=== PATIENT | female | born 1960 | race Caucasian/White ===

== ENCOUNTER 2017-09-29 14:05 | Emergency (ER) | payer SELFPAY ==
[2017-09-29] MEDS ORDERED: ONDANSETRON HCL INJ/PF 4 MG/2 ML SDV IV ONE (14:51)
[2017-09-29] MEDS ORDERED: NORMAL SALINE 1000 ML 1,000 ML IV ONE (14:51)
[2017-09-29] MEDS ORDERED: MORPHINE SULFATE 10 MG/ML INJ IV ONE (14:54)
[2017-09-29] MEDS ORDERED: CLONIDINE HCL 0.2 MG TABLET PO ONE (14:56)
--- NOTE | 2017-09-29 14:57 | ER Document Report ---
ED Medical Screen (RME) - General Chief Complaint: Back Pain Stated Complaint: LEFT SIDE PAIN Time Seen by Provider: 09/29/17 14:50 Notes: Patient reports sudden onset of severe left flank pain radiating to the left lower abdomen. She has some frequency and urgency. She states she is also nauseated. She states she has not been taking her blood pressure medication. She states that financial is part of the reason but not the whole reason. TRAVEL OUTSIDE OF THE [place] IN LAST 30 DAYS: No - Related Data Allergies/Adverse Reactions: codeine Allergy (Verified 09/29/17 14:39) Home Medications: Current Home Medications Aspirin [Aspirin EC] 81 mg PO DAILY 09/29/17 [History] Past Medical History - Social History Chew tobacco use (# tins/day): No Frequency of alcohol use: Rare Drug Abuse: None - Past Medical History Cardiac Medical History: Reports: Hx Hypertension Pulmonary Medical History: Reports: Hx Asthma, Hx COPD Renal/ Medical History: Denies: Hx Peritoneal Dialysis Physical Exam - Vital signs Vitals: Temp Pulse Resp BP Pulse Ox 98.0 F 79 20 243/111 H 98 09/29/17 14:11 09/29/17 14:11 09/29/17 14:11 09/29/17 14:11 09/29/17 14:11 Course - Vital Signs Vital signs: Temp Pulse Resp BP Pulse Ox 98.0 F 79 20 243/111 H 98 09/29/17 14:11 09/29/17 14:11 09/29/17 14:11 09/29/17 14:11 09/29/17 14:11
[2017-09-29 15:59] LABS: ABSOLUTE BASOPHILS # (AUTO) 0.1 10^3/uL (0.0-0.2); ABSOLUTE EOSINOPHILS # (AUTO) 0.2 10^3/uL (0.0-0.6); ABSOLUTE LYMPHOCYTES (AUTO) 1.3 10^3/uL (0.5-4.7); ABSOLUTE MONOCYTES (AUTO) 0.8 10^3/uL (0.1-1.4); BASOPHILS % (AUTO) 0.4 % (0-2); EOSINOPHILS % (AUTO) 1.3 % (0-6); HEMATOCRIT 44.9 % (36.0-47.0); HEMOGLOBIN 15.2 g/dL (12.0-15.5); HGB HCT DIFFERENCE 0.7; LYMPHOCYTES % (AUTO) 9.8 % (13-45); MEAN CORPUSCULAR HEMOGLOBIN 28.6 pg (27.0-33.4); MEAN CORPUSCULAR HGB CONC 33.8 g/dL (32.0-36.0); MEAN CORPUSCULAR VOLUME 85 fl (80-97); MONOCYTES % (AUTO) 6.1 % (3-13); RED BLOOD COUNT 5.31 10^6/uL (3.72-5.28); RED CELL DISTRIBUTION WIDTH 13.4 % (11.5-14.0); SEGMENTED NEUTROPHILS % (AUTO) 82.4 % (42-78); WHITE BLOOD COUNT 13.4 10^3/uL (4.0-10.5)
[2017-09-29 16:11] LABS: AMORPHOUS SEDIMENT,URINE TRACE /HPF; APPEARANCE,URINE TURBID; BILIRUBIN,URINE NEGATIVE (NEGATIVE); GLUCOSE, URINE NEGATIVE (NEGATIVE); KETONES,URINE NEGATIVE (NEGATIVE); LEUKOCYTE ESTERASE,URINE MODERATE (NEGATIVE); NITRITE,URINE NEGATIVE (NEGATIVE); PROTEIN,URINE >=500 mg/dL (NEGATIVE); URINE SPECIFIC GRAVITY 1.014; UROBILINOGEN,URINE NEGATIVE mg/dL (<2.0)
[2017-09-29 16:14] LABS: ALANINE AMINOTRANSFERASE 37 U/L (9-52); ALBUMIN 4.6 g/dL (3.5-5.0); ALKALINE PHOSPHATASE 103 U/L (38-126); ANION GAP 14 (5-19); ASPARTATE AMINO TRANSFERASE 21 U/L (14-36); BILIRUBIN,DIRECT 0.2 mg/dL (0.0-0.4); BILIRUBIN,TOTAL 0.7 mg/dL (0.2-1.3); BLOOD UREA NITROGEN 20 mg/dL (7-20); CALCIUM 10.1 mg/dL (8.4-10.2); CARBON DIOXIDE 28 mmol/L (22-30); CHLORIDE 102 mmol/L (98-107); CREATININE RESULT 0.99 mg/dL (0.52-1.25); GLUCOSE 122 mg/dL (75-110); POTASSIUM 4.3 mmol/L (3.6-5.0); SODIUM 143.9 mmol/L (137-145); TOTAL PROTEIN 7.7 g/dL (6.3-8.2)
[2017-09-29] MEDS ORDERED: CEFTRIAXONE 1 GM/D5W RTU 1 GM/50 ML RTUPB IV ONE (16:50)
--- NOTE | 2017-09-29 16:55 | RADIOLOGY REPORT (SQ) ---
EXAM DESCRIPTION: CT ABD/PELVIS NO ORAL OR IV COMPLETED DATE/TIME: 09/29/2017 3:41 pm REASON FOR STUDY: left flank pain COMPARISON: None. TECHNIQUE: CT scan of the abdomen and pelvis performed without intravenous or oral contrast. Images reviewed with lung, soft tissue, and bone windows. Reconstructed coronal and sagittal MPR images revi ewed. All images stored on PACS. All CT scanners at this facility use dose modulation, iterative reconstruction, and/or weight based d osing when appropriate to reduce radiation dose to as low as reasonably achievable (ALARA). [facility]: Dose Right [facility]: CareDose [facility]: Dose Right [facility]: Teradose 4D [facility]: Smart [employer] RADIATION DOSE: CT Rad equipment meets quality standard of care and radiation dose reduction techniq ues were employed. CTDIvol: 14.4 mGy. DLP: 759 mGy-cm.mGy. LIMITATIONS: None. FINDINGS: LOWER CHEST: No significant findings. No nodules or infiltrates. NON-CONTRASTED LIVER, SPLEEN, ADRENALS: Evaluation limited by lack of IV contrast. No identified sign ificant masses. PANCREAS: No masses. No peripancreatic inflammatory changes. GALLBLADDER: No identified stones by CT criteria. No inflammatory changes to suggest cholecystitis. RIGHT KIDNEY AND URETER: No suspicious masses. Assessment limited by lack of IV contrast. No signif icant calcifications. No hydronephrosis or hydroureter. LEFT KIDNEY AND URETER: No suspicious masses. Assessment limited by lack of IV contrast. 5 mm calcu nikolay at UPJ. Hydronephrosis is present. AORTA AND RETROPERITONEUM: No aneurysm. No retroperitoneal masses or adenopathy. BOWEL AND PERITONEAL CAVITY: Numerous diverticula throughout the colon. No acute inflammatory change s. APPENDIX: Normal. PELVIS, BLADDER, AND ABDOMINAL WALL:No abnormal masses. No free fluid. Bladder normal. BONES: No significant findings. OTHER: No other significant finding. IMPRESSION: 1. Left hydronephrosis secondary to a 5 mm calculus at the left UPJ. 2. Extensive diverticulosis coli with no acute inflammation. COMMENT: Quality ID # [id number]: Final reports with documentation of one or more dose reduction techniques (e.g., Automated exposure control, adjustment of the mA and/or kV according to patient size, use of iterative reconstruction technique) TECHNICAL DOCUMENTATION: JOB ID: [id number]- All Rights Reserved
[2017-09-29] MEDS ORDERED: HYDROMORPHONE HCL INJ/PF 2 MG/ML AMPULE IV ONE (17:23)
--- NOTE | 2017-09-29 17:29 | ER Document Report ---
ED GI/ - General Chief Complaint: Back Pain Stated Complaint: LEFT SIDE PAIN Time Seen by Provider: 09/29/17 14:50 TRAVEL OUTSIDE OF THE [place] IN LAST 30 DAYS: No - HPI Notes: 09/29/17 17:25 56-year-old female with history of hypertension as well as COPD, continued tobacco abuse presents with onset of left flank pain starting about noon today. It is severe radiating to the left lower abdomen. It is somewhat improved after receiving morphine after being evaluated in [facility] by Dr. Hudson. She has had nausea without vomiting. Denies diarrhea or stool change. She has had dysuria and hematuria as well with increased urine output. Denies prior urologic abnormality or abdominal surgery. Denies fever, rigors. - Related Data Allergies/Adverse Reactions: codeine Allergy (Verified 09/29/17 14:39) Home Medications: Current Home Medications Aspirin [Aspirin EC] 81 mg PO DAILY 09/29/17 [History] Past Medical History - Social History Smoking Status: Current Every Day Smoker Chew tobacco use (# tins/day): No Frequency of alcohol use: Rare Drug Abuse: None Family History: Reviewed & Not Pertinent Patient has suicidal ideation: No Patient has homicidal ideation: No - Past Medical History Cardiac Medical History: Reports: Hx Hypertension Pulmonary Medical History: Reports: Hx Asthma, Hx COPD Renal/ Medical History: Denies: Hx Peritoneal Dialysis Review of Systems - Review of Systems -: Yes All other systems reviewed and negative Physical Exam - Vital signs Vitals: Temp Pulse Resp BP Pulse Ox 98.0 F 79 20 243/111 H 98 09/29/17 14:11 09/29/17 14:11 09/29/17 14:11 09/29/17 14:11 09/29/17 14:11 Interpretation: Hypertensive - Notes Notes: GENERAL: VS as per nursing doc. Well-appearing, well-nourished and in no acute distress. HEAD: Atraumatic, normocephalic. EYES: Sclera anicteric, no conjunctival injection or discharge. ENT: Nares patent, oropharynx clear without exudates, moist mucous membranes. NECK: Normal range of motion, supple without lymphadenopathy. LUNGS: Breath sounds coarse but clear to auscultation bilaterally and equal. No wheezes rales or rhonchi. HEART: Regular rate and rhythm without murmurs. ABDOMEN: Soft, mild generalized left abdominal tenderness, normoactive bowel sounds. No guarding, no rebound. No masses appreciated. No Anita sign. BACK: Moderate left CVA tenderness. EXTREMITIES: Normal range of motion. NEUROLOGICAL: Cranial nerves grossly intact. Normal speech. Normal sensory and motor exams. No gross cerebellar abnormalities. PSYCH: Normal mood, normal affect. SKIN: Warm, dry, normal turgor, no shingles rash. Course - Re-evaluation Re-evalutation: 09/29/17 18:03 Still awaiting blood pressure recheck. Patient is requesting more pain medication appears fairly uncomfortable. Nausea improved but not completely gone. I have contacted [facility] transfer center and awaiting a phone call back regarding transfer consideration. 09/29/17 18:14 I discussed with the urologist at [facility], Dr. Lambert, . He did not feel the patient needed emergent follow-up and just needed to ensure she had a culture placed, put on antibiotics but he is agreeable for follow-up and did not feel she needed stenting based on her WBC count, symptoms, normal heart rate, and lack of fever. I have asked for a copy of the CT to be given to the patient. Urine cultures already been ordered and Rocephin is already been given. 09/29/17 18:15 Follow-up blood pressure is 166/100 09/29/17 18:37 Discussed with the patient follow-up needs and she is comfortable with outpatient follow-up, would prefer this. They are going to call a local urologist in town here to see if they can get him rather than travel to [place] but understand they do have guaranteed follow-up there. She understands all warning signs as well as family who are with her on what to return for an mandatory follow-up. She does agree to start lisinopril to see if we can get some improvement with her blood pressure. As she has no insurance we will start lisinopril. We will place her as well on Bactrim to see if we can get her urine cleared up. She can take hydrocodone so she will prescribe this for pain as well as anti-emetics. - Vital Signs Vital signs: Temp Pulse Resp BP Pulse Ox 98.0 F 79 20 166/100 H 98 09/29/17 18:05 09/29/17 18:05 09/29/17 18:05 09/29/17 18:07 09/29/17 18:05 - Laboratory Result Diagrams: 09/29/17 15:20 09/29/17 15:20 Laboratory results interpreted by me: 09/29/17 09/29/17 09/29/17 14:30 15:20 15:20 WBC 13.4 H RBC 5.31 H Seg Neutrophils % 82.4 H Lymphocytes % 9.8 L Absolute Neutrophils 11.0 H Est GFR (Non-Af Amer) 58 L Glucose 122 H Urine Protein >=500 H Urine Blood LARGE H Ur Leukocyte Esterase MODERATE H - Diagnostic Test Radiology reviewed: Reports reviewed - 5 mm left UPJ stone with hydronephrosis Discharge - Discharge Clinical Impression: Ureteral calculus, left, UTI (urinary tract infection), Hypertension Condition: Good Disposition: HOME, SELF-CARE Instructions: Urinary Tract Infection ([facility]), Trimethoprim-Sulfa ([facility]) Additional Instructions: Kidney Stone You are passing or have passed a kidney stone. These stones are usually due to increased calcium or uric acid concentrations in your urine. Stones within the kidney itself are not painful. The pain occurs as the stone leaves the kidney to pass down the long tube, called the ureter, leading to the bladder. If the stone is small, it will usually pass by itself. Most patients can pass the stone at home. You will usually receive medications for pain, nausea or vomiting, and sometimes a medication to assist in passing the kidney stone. However, if the pain is very severe or if vomiting prevents you from taking oral pain medications, you may need to return for further treatment. Drink three or four quarts of fluids per day. You will be given pain medication (if needed) and urine strainers. Strain all your urine to see if the stone passes. If your doctor has asked you to bring the stone in for analysis, return with the stone once it has passed. Return if pain or vomiting become severe, if you develop a high fever, if you are unable to pass your urine, or if other unusual symptoms occur. As we discussed, make sure you take the CT scan on disc I gave you to your appointment. Feel free to contact a local physician but, if you have any difficulty getting in, Dr. Lambert ([facility], Dr. Lambert, ) stated he will follow you up in [place] at the number provided. Please make sure that your follow-up is taken care of tomorrow. He will need a primary care physician as well either through the [facility] or the [facility] to follow-up your blood pressure as well. Keep hydrated with non- caffeinated fluids. Make sure you return if you are developing fever, uncontrolled pain, repetitive vomiting or inability to keep the antibiotic pills down. Make sure you start your medications in the morning. Prescriptions: Hydrocodone/Acetaminophen [[place] 10-325 mg Tablet] 1 tab PO Q6HP PRN #20 tablet PRN Reason: For Pain Lisinopril 20 mg PO DAILY #20 tablet Ondansetron [Zofran Odt 4 mg Tablet] 1 tab PO Q4H PRN #15 tab.rapdis PRN Reason: For Nausea/Vomiting Sulfamethoxazole/Trimethoprim [Bactrim Ds Tablet] 1 each PO BID #20 tablet
[2017-09-29] MEDS ORDERED: LISINOPRIL 10 MG TABLET PO ONE (18:46)
[2017-09-29 19:05] VITALS: BP 172/88
== END 2017-09-29 19:11 | disposition home or self-care (01) ==
LOC: ER 14:05
DX: N39.0 Urinary tract infection, site not specified (principal); N20.1 Calculus of ureter; I10 Essential (primary) hypertension; M54.9 Dorsalgia, unspecified; J44.9 Chronic obstructive pulmonary disease, unspecified; R10.32 Left lower quadrant pain; R30.0 Dysuria; R31.9 Hematuria, unspecified; F17.200 Nicotine dependence, unspecified, uncomplicated
CPT/HCPCS: 99284; 96375; 96365; 36415; 87040; 87086; 85025; 87088; 80053; 81001; 87186; 74176; J2270; J1170; J2405; J7030; J0696

== ENCOUNTER 2017-10-14 14:55 | Emergency (ER) | payer SELFPAY ==
[2017-10-14] MEDS ORDERED: ONDANSETRON ODT 4 MG TAB (6 TAB/ER DISP) PO PRN (15:51)
[2017-10-14] MEDS ORDERED: KETOROLAC TROMETHAMINE 60 MG/2 ML SDV IM ONE (15:51)
--- NOTE | 2017-10-14 15:52 | ER Document Report ---
ED General - General Chief Complaint: Flank Pain Stated Complaint: LEFT SIDE PAIN Time Seen by Provider: 10/14/17 15:45 Notes: 36-year-old female presents with left flank pain worse since this morning similar to when she had a kidney stone on the left side. She states "my stone moved." She has some nausea subjective fever and chills and dysuria. No hematuria. She was diagnosed here couple of weeks ago and was sent to urology who she saw. They did not do any interventions, and asked her to go to the ER [place] today. She cannot get there is secondary to transportation TRAVEL OUTSIDE OF THE [place] IN LAST 30 DAYS: No - Related Data Allergies/Adverse Reactions: codeine Allergy (Verified 09/29/17 14:39) Past Medical History - Social History Smoking Status: Current Every Day Smoker Family History: Reviewed & Not Pertinent - Past Medical History Cardiac Medical History: Reports: Hx Hypertension Pulmonary Medical History: Reports: Hx Asthma, Hx COPD Renal/ Medical History: Denies: Hx Peritoneal Dialysis Physical Exam - Vital signs Vitals: Temp Pulse Resp BP Pulse Ox 99.3 F 88 16 184/80 H 97 10/14/17 15:18 10/14/17 15:18 10/14/17 15:18 10/14/17 15:18 10/14/17 15:18 Course - Re-evaluation Re-evalutation: 10/14/17 16:47 Patient presents with recurrent left flank pain in the setting of known 5 mm kidney stone on the left side. She has some CVA tenderness and some signs and symptoms of infection. CVA tenderness is concerning for infection. Urinalysis and culture were sent. Initially I ordered oral meds and a CT scan. On my interpretation of the scan she still has the same stone at the same site of obstruction with the same amount of hydrocodone that said, her urine is infected. We will give Cipro, obtain IV access get labs and cultures and contact [place] because she probably needs to be transferred for intervention. 10/14/17 18:31 CBC shows elevated white count. Creatinine is normal. Discussed with therese, physician residential assistant for Dr. Lambert who accepted the patient for transfer. Transfer center asked if we could do air transport because they would like to take the patient directly to the OR. I feel that this is a likely misuse of resources given that she is stable for ground transport. She is received antibiotics we will hydrate her and continue to monitor. - Vital Signs Vital signs: Temp Pulse Resp BP Pulse Ox 99.3 F 88 16 184/80 H 97 10/14/17 15:18 10/14/17 15:18 10/14/17 15:18 10/14/17 15:18 10/14/17 15:18 - Laboratory Result Diagrams: 10/14/17 16:57 10/14/17 16:57 Laboratory results interpreted by me: 10/14/17 10/14/17 10/14/17 15:40 16:57 16:57 WBC 13.4 H Seg Neutrophils % 83.4 H Lymphocytes % 8.9 L Absolute Neutrophils 11.2 H BUN 22 H Glucose 132 H Urine Protein 100 H Urine Blood MODERATE H Ur Leukocyte Esterase LARGE H Discharge - Discharge Clinical Impression: Urinary tract obstruction by kidney stone, Pyelonephritis, acute Condition: Good Disposition: [facility]
--- NOTE | 2017-10-14 16:21 | RADIOLOGY REPORT (SQ) ---
EXAM DESCRIPTION: CT ABD/PELVIS NO ORAL OR IV COMPLETED DATE/TIME: 10/14/2017 4:10 pm REASON FOR STUDY: l SIDED STONE COMPARISON: 09/29/2017. TECHNIQUE: CT scan of the abdomen and pelvis performed without intravenous or oral contrast. Images reviewed with lung, soft tissue, and bone windows. Reconstructed coronal and sagittal MPR images revi ewed. All images stored on PACS. All CT scanners at this facility use dose modulation, iterative reconstruction, and/or weight based d osing when appropriate to reduce radiation dose to as low as reasonably achievable (ALARA). [facility]: Dose Right [facility]: CareDose [facility]: Dose Right [facility]: Teradose 4D [facility]: Smart [employer] RADIATION DOSE: mGy. LIMITATIONS: None. FINDINGS: LOWER CHEST: No significant findings. No nodules or infiltrates. NON-CONTRASTED LIVER, SPLEEN, ADRENALS: Evaluation limited by lack of IV contrast. No identified sign ificant masses. PANCREAS: No masses. No peripancreatic inflammatory changes. GALLBLADDER: No identified stones by CT criteria. No inflammatory changes to suggest cholecystitis. RIGHT KIDNEY AND URETER: No suspicious masses. Assessment limited by lack of IV contrast. No signif icant calcifications. No hydronephrosis or hydroureter. LEFT KIDNEY AND URETER: No suspicious masses. Assessment limited by lack of IV contrast. 5 mm calcu nikolay in the proximal ureter. Prominent hydronephrosis. AORTA AND RETROPERITONEUM: No aneurysm. No retroperitoneal masses or adenopathy. BOWEL AND PERITONEAL CAVITY: No obvious masses or inflammatory changes. No free fluid. APPENDIX: Normal. PELVIS, BLADDER, AND ABDOMINAL WALL:No abnormal masses. No free fluid. Bladder normal. BONES: No significant findings. OTHER: No other significant finding. IMPRESSION: 5 MM CALCULUS IN THE PROXIMAL LEFT URETER WITH ASSOCIATED HYDRONEPHROSIS. NO CHANGE FRO M THE PRIOR STUDY. NO OTHER SIGNIFICANT OR ACUTE PROCESS IN THE ABDOMEN OR PELVIS. COMMENT: Quality ID # [id number]: Final reports with documentation of one or more dose reduction techniques (e.g., Automated exposure control, adjustment of the mA and/or kV according to patient size, use of iterative reconstruction technique) TECHNICAL DOCUMENTATION: JOB ID: [id number] [id number]- All Rights Reserved
[2017-10-14 16:31] LABS: APPEARANCE,URINE TURBID; BILIRUBIN,URINE NEGATIVE (NEGATIVE); COLOR,URINE YELLOW; GLUCOSE, URINE NEGATIVE (NEGATIVE); KETONES,URINE NEGATIVE (NEGATIVE); LEUKOCYTE ESTERASE,URINE LARGE (NEGATIVE); NITRITE,URINE NEGATIVE (NEGATIVE); PROTEIN,URINE 100 mg/dL (NEGATIVE); URINE SPECIFIC GRAVITY 1.025; UROBILINOGEN,URINE NEGATIVE mg/dL (<2.0)
[2017-10-14] MEDS ORDERED: CIPROFLOXACIN 400 MG/D5W RTU 400 MG/200 ML RTUPB IV ONE (16:42)
[2017-10-14 17:06] LABS: ABSOLUTE BASOPHILS # (AUTO) 0.1 10^3/uL (0.0-0.2); ABSOLUTE EOSINOPHILS # (AUTO) 0.2 10^3/uL (0.0-0.6); ABSOLUTE LYMPHOCYTES (AUTO) 1.2 10^3/uL (0.5-4.7); ABSOLUTE MONOCYTES (AUTO) 0.8 10^3/uL (0.1-1.4); ABSOLUTE NEUT (AUTO) 11.2 10^3/uL (1.7-8.2); BASOPHILS % (AUTO) 0.4 % (0-2); EOSINOPHILS % (AUTO) 1.5 % (0-6); HEMATOCRIT 41.7 % (36.0-47.0); HEMOGLOBIN 13.9 g/dL (12.0-15.5); LYMPHOCYTES % (AUTO) 8.9 % (13-45); MEAN CORPUSCULAR HEMOGLOBIN 28.2 pg (27.0-33.4); MEAN CORPUSCULAR HGB CONC 33.3 g/dL (32.0-36.0); MEAN CORPUSCULAR VOLUME 85 fl (80-97); MONOCYTES % (AUTO) 5.8 % (3-13); PLATELET COUNT 234 10^3/uL (150-450); RED BLOOD COUNT 4.92 10^6/uL (3.72-5.28); RED CELL DISTRIBUTION WIDTH 13.4 % (11.5-14.0); SEGMENTED NEUTROPHILS % (AUTO) 83.4 % (42-78); TOTAL CELLS COUNTED % (AUTO) 100 %; WHITE BLOOD COUNT 13.4 10^3/uL (4.0-10.5)
[2017-10-14 17:25] LABS: ANION GAP 10 (5-19); BLOOD UREA NITROGEN 22 mg/dL (7-20); CALCIUM 9.8 mg/dL (8.4-10.2); CARBON DIOXIDE 25 mmol/L (22-30); CHLORIDE 105 mmol/L (98-107); GLUCOSE 132 mg/dL (75-110); POTASSIUM 4.4 mmol/L (3.6-5.0); SODIUM 139.8 mmol/L (137-145)
[2017-10-14] MEDS ORDERED: KETOROLAC TROMETHAMINE INJ/PF 30 MG/1 ML SDV IV ONE (17:26)
[2017-10-14] MEDS ORDERED: MORPHINE SULFATE 10 MG/ML INJ IV ONE (17:26)
[2017-10-14 20:19] VITALS: BP 148/73
== END 2017-10-14 20:05 | disposition short-term general hospital (02) ==
LOC: ER 14:55
DX: N10 Acute pyelonephritis (principal); N20.0 Calculus of kidney; R10.9 Unspecified abdominal pain; R11.0 Nausea; R50.9 Fever, unspecified; F17.200 Nicotine dependence, unspecified, uncomplicated
CPT/HCPCS: 99285; 96375; 96365; 36415; 87040; 87086; 85025; 87088; 80048; 81001; 87186; 74176; J1885; J2270; J0744

== ENCOUNTER 2018-10-27 09:04 | Emergency (ER) | payer BC ==
[2018-10-27] MEDS ORDERED: KETOROLAC TROMETHAMINE 60 MG/2 ML SDV IM ONE (11:12)
--- NOTE | 2018-10-27 11:13 | ER Document Report ---
ED General - General Chief Complaint: Vaginal Bleeding Stated Complaint: ABDOMINAL PAIN/VAGINAL BLEEDING Time Seen by Provider: 10/27/18 10:48 TRAVEL OUTSIDE OF THE [place].S[place] IN LAST 30 DAYS: No - HPI Notes: Patient is a 57-year-old female that presents to the emergency department for chief complaint of vaginal bleeding. Patient began having vaginal bleeding 1-2 weeks ago. She states it was initially light and spotting. The bleeding became more heavy over the last 3 days. She states she is now passing large clots. She reports feeling lightheaded with position changes but denies any syncope. She states she has had a history of anemia in the past. She states she has a history of heavy menses and has required 2 D&C's previously but that was many years ago. Patient had not had a menstrual cycle prior to this for 2-3 months. She believes she is starting menopause. She denies any associated vomiting, diarrhea, dysuria and urinary frequency. She does endorse a suprapubic pain that is constant but waxes and wanes in intensity. She states it is a crampy sensation. She denies radiation of her pain. She denies aggravating or relieving factors to her pain. Past Medical History: Diabetes, hypertension, COPD, hiatal hernia, diverticulosis Past Surgical History: , D&C x2, tonsillectomy, ureteral stent Social History: Daily tobacco. Occasional alcohol. Denies drug use. Family History: Reviewed and noncontributory for presenting illness Allergies: Reviewed, see documented allergy list. REVIEW OF SYSTEMS: CONSTITUTIONAL : No fever No chills No diaphoresis No recent illness EENT: No vision changes No congestion No sore throat CARDIOVASCULAR: No chest pain No palpitations RESPIRATORY: No shortness of breath No cough No difficulty breathing GASTROINTESTINAL: abdominal pain No nausea No vomiting No diarrhea GENITOURINARY: Vaginal bleeding No dysuria No hematuria No difficulty urinating MUSCULOSKELETAL: No back pain No leg pain No arm pain SKIN: No rashes No lesions LYMPHATIC: No swollen, enlarged glands. NEUROLOGICAL: lightheadedness No headache No weakness No paresthesias PSYCHIATRIC: No anxiety No depression PHYSICAL EXAMINATION: Vital signs reviewed, nursing noted reviewed. GENERAL: Well-appearing, well-nourished and in no acute distress. HEAD: Atraumatic, normocephalic. EYES: Eyes appear normal, extraocular movements intact, sclera anicteric, conjunctiva are normal. ENT: nares patent, oropharynx clear without exudates. Moist mucous membranes. NECK: Normal range of motion, supple without lymphadenopathy LUNGS: Breath sounds clear to auscultation bilaterally and equal. No wheezes rales or rhonchi. HEART: Regular rate and rhythm without murmurs ABDOMEN: Soft, nontender, normoactive bowel sounds. No rebound, guarding, or rigidity. No masses appreciated. EXTREMITIES: Nontender, good range of motion, no pitting or edema. NEUROLOGICAL: No focal neurological deficits. Moves all extremities spontaneously Motor and sensory grossly intact on exam. PSYCH: Normal mood, normal affect. SKIN: Warm, Dry, normal turgor, no rashes or lesions noted on exposed skin - Related Data Allergies/Adverse Reactions: codeine Allergy (Verified 10/27/18 09:06) Past Medical History - General Last Menstrual Period: x 2 days - Social History Smoking Status: Current Every Day Smoker Chew tobacco use (# tins/day): No Frequency of alcohol use: Occasional Drug Abuse: None Family History: Reviewed & Not Pertinent Patient has suicidal ideation: No Patient has homicidal ideation: No - Past Medical History Cardiac Medical History: Reports: Hx Hypertension Pulmonary Medical History: Reports: Hx Asthma, Hx COPD Renal/ Medical History: Reports: Hx Kidney Stones. Denies: Hx Peritoneal Dialysis Past Surgical History: Reports: Hx Section, Hx Gynecologic Surgery - d and c x 2, Hx Kidney (Renal Surgery) - kidney stones, Hx Tonsillectomy Physical Exam - Vital signs Vitals: Temp Pulse Resp BP Pulse Ox 97.6 F 87 20 226/83 H 99 10/27/18 09:15 10/27/18 09:15 10/27/18 09:15 10/27/18 09:15 10/27/18 09:15 Course - Re-evaluation Re-evalutation: 10/27/18 11:11 Vitals reviewed. Nursing notes reviewed. Patient given Toradol for pain. 10/27/18 12:11 Patient's hemoglobin is 13. Her blood pressure is elevated and she is orthostatic negative. She is hemodynamically stable for further management as an outpatient. I discussed her care with Dr. Slade who does not feel she is requiring D&C today. He recommends TXA and close follow-up in the office. Patient was given TXA IV in the emergency room and will be given oral TXA for 2 days. She is instructed to see [facility] today. I did attempt to arrange a follow-up appointment for her however the office is currently closed. They will reopen and 30 minutes and I will attempt again. Laboratory 10/27/18 09:43 WBC 7.7 RBC 4.76 Hgb 13.0 Hct 38.7 MCV 81 MCH 27.3 MCHC 33.6 RDW 16.5 H Plt Count 202 Seg Neutrophils % 70.3 Lymphocytes % 18.6 Monocytes % 5.6 Eosinophils % 4.8 Basophils % 0.7 Absolute Neutrophils 5.4 Absolute Lymphocytes 1.4 Absolute Monocytes 0.4 Absolute Eosinophils 0.4 Absolute Basophils 0.1 10/27/18 13:07 Patient has an appointment scheduled at 2pm at [facility]. She will be discharged and referred to go directly over there. She is hemodynamically stable at discharge. - Vital Signs Vital signs: Temp Pulse Resp BP Pulse Ox 97.6 F 84 20 235/89 H 99 10/27/18 09:15 10/27/18 12:00 10/27/18 09:15 10/27/18 12:00 10/27/18 09:15 - Laboratory Result Diagrams: 10/27/18 09:43 Laboratory results interpreted by me: 10/27/18 09:43 RDW 16.5 H Discharge - Discharge Clinical Impression: Episode of heavy vaginal bleeding Condition: Stable Disposition: HOME, SELF-CARE Instructions: Vaginal Bleeding ([facility]) Additional Instructions: Follow[facility]up with [facility] today for further evaluation of your vaginal bleeding Prescriptions: Tranexamic Acid [Lysteda] 1,300 mg PO TID #6 tablet Referrals: [facility] [Provider Group] - 10/27/18
[2018-10-27 11:47] LABS: ABSOLUTE BASOPHILS # (AUTO) 0.1 10^3/uL (0.0-0.2); ABSOLUTE EOSINOPHILS # (AUTO) 0.4 10^3/uL (0.0-0.6); ABSOLUTE LYMPHOCYTES (AUTO) 1.4 10^3/uL (0.5-4.7); ABSOLUTE MONOCYTES (AUTO) 0.4 10^3/uL (0.1-1.4); ABSOLUTE NEUT (AUTO) 5.4 10^3/uL (1.7-8.2); BASOPHILS % (AUTO) 0.7 % (0-2); EOSINOPHILS % (AUTO) 4.8 % (0-6); HEMATOCRIT 38.7 % (36.0-47.0); LYMPHOCYTES % (AUTO) 18.6 % (13-45); MEAN CORPUSCULAR HEMOGLOBIN 27.3 pg (27.0-33.4); MEAN CORPUSCULAR HGB CONC 33.6 g/dL (32.0-36.0); MEAN CORPUSCULAR VOLUME 81 fl (80-97); MONOCYTES % (AUTO) 5.6 % (3-13); PLATELET COUNT 202 10^3/uL (150-450); RED BLOOD COUNT 4.76 10^6/uL (3.72-5.28); RED CELL DISTRIBUTION WIDTH 16.5 % (11.5-14.0); SEGMENTED NEUTROPHILS % (AUTO) 70.3 % (42-78); TOTAL CELLS COUNTED % (AUTO) 100 %; WHITE BLOOD COUNT 7.7 10^3/uL (4.0-10.5)
[2018-10-27] MEDS ORDERED: KETOROLAC TROMETHAMINE INJ/PF 30 MG/1 ML SDV IV ONE (11:58)
[2018-10-27] MEDS ORDERED: TRANEXAMIC ACID INJ/PF 1,000 MG/10 ML SDV IV ONE (12:10)
[2018-10-27 13:22] VITALS: BP 223/85
== END 2018-10-27 13:24 | disposition home or self-care (01) ==
LOC: ER 09:04
DX: N93.8 Other specified abnormal uterine and vaginal bleeding (principal); E11.9 Type 2 diabetes mellitus without complications; I10 Essential (primary) hypertension; J44.9 Chronic obstructive pulmonary disease, unspecified; F17.210 Nicotine dependence, cigarettes, uncomplicated; Z87.442 Personal history of urinary calculi
CPT/HCPCS: 99284; 96374; 96375; 36415; 85025; J1885; J3490